=== PATIENT | male | born 1970 | race Asian ===

== ENCOUNTER 2020-11-01 06:33 | Outpatient (REF) | payer OTHER, SELFPAY | END 2020-11-01 06:34 | disposition home or self-care (01) | LOC: HO.LAB 06:33 | PROVIDERS: PCP Internal Medicine; Visit Provider Internal Medicine | DX: Z20.828 Contact with and (suspected) exposure to other viral communicable diseases (principal) | CPT/HCPCS: C9803; U0003 ==

== ENCOUNTER 2020-11-16 06:12 | Outpatient (REF) | payer OTHER, SELFPAY | END 2020-11-16 06:13 | disposition home or self-care (01) | LOC: HO.LAB 06:12 | PROVIDERS: PCP Internal Medicine; Visit Provider Internal Medicine | DX: Z20.822 Contact with and (suspected) exposure to COVID-19 (principal) | CPT/HCPCS: 36415; C9803; U0003 ==

== ENCOUNTER 2020-11-23 06:28 | Outpatient (REF) | payer OTHER, SELFPAY | END 2020-11-23 06:29 | disposition home or self-care (01) | LOC: HO.LAB 06:28 | PROVIDERS: PCP Internal Medicine; Visit Provider Internal Medicine | DX: Z20.822 Contact with and (suspected) exposure to COVID-19 (principal) | CPT/HCPCS: 36415; C9803; U0003 ==

== ENCOUNTER 2020-12-04 06:17 | Outpatient (REF) | payer OTHER, SELFPAY | END 2020-12-04 06:18 | disposition home or self-care (01) | LOC: HO.LAB 06:17 | PROVIDERS: PCP Internal Medicine; Visit Provider Internal Medicine | DX: Z20.822 Contact with and (suspected) exposure to COVID-19 (principal) | CPT/HCPCS: 36415; C9803; U0003; U0005 ==

== ENCOUNTER 2021-05-16 06:31 | Outpatient (REF) | payer OTHER, SELFPAY ==
[2021-05-16 07:09] LABS: MANUAL DIFF FLAG NO
[2021-05-16 07:11] LABS: Basophils Absolute Auto 0.1 X10*3/uL (0.0-0.2); Basophils Percent Auto 0.8 % (0-2); Eosinophils Absolute Auto 0.2 X10*3/uL (0.0-0.4); Eosinophils Percent Auto 2.1 % (0-4); Hematocrit 46.1 % (42-52); Hemoglobin 15.2 g/dl (14.0-18.0); Imm Gran Abs Auto 0.06 X10*3/uL (0.00-0.03); Imm Gran Pct Auto 0.7 % (0.0-0.4); Lymphocytes Absolute Auto 2.5 X10*3/uL (1.2-4.9); Lymphocytes Percent Auto 28.2 % (20-40); Mean Corpuscular Hemoglobin 28.8 pg (27.0-33.0); Mean Corpuscular Volume 87.3 fL (80-98); Mean Platelet Volume 11.4 fL (9.4-12.4); Monocytes Absolute Auto 0.8 X10*3/uL (0.1-1.2); Monocytes Percent Auto 9.3 % (2-11); Neutrophils Absolute Auto 5.3 X10*3/uL (2.0-8.3); Neutrophils Percent Auto 58.9 % (45-73); Platelet Count 255 X10*3/uL (160-400); Red Blood Count 5.28 X10*6/uL (4.60-5.80); Red Cell Distribution Width 13.1 % (11.0-16.0)
[2021-05-16 08:06] LABS: HIV AB/AG Nonreactive (Nonreactive); HIV Num 1 0.15 S/CO (0.00-0.99)
[2021-05-16 08:42] LABS: Alanine Aminotransferase 12 U/L (0-40); Albumin Level 4.7 g/dL (3.5-5.0); Alkaline Phosphatase 123 U/L (39-117); Anion Gap 17 (12-20); Aspartate Amino Transferase 13 U/L (5-37); Bilirubin Total 0.7 mg/dL (0.0-1.0); Blood Urea Nitrogen 9 mg/dL (9-16); Calcium 9.9 mg/dL (8.4-10.2); Carbon Dioxide 23 mmol/L (22-29); Chloride 102 mmol/L (96-108); Estimated Glomerular Filt Rate > 60; Glucose Fasting 420 mg/dL (60-99); Potassium 3.8 mmol/L (3.3-5.1); Sodium 138 mmol/L (135-145); Total Protein 7.5 g/dL (6.5-8.0)
== END 2021-05-16 06:32 | disposition home or self-care (01) ==
LOC: HO.LAB 06:31
PROVIDERS: Visit Provider Internal Medicine
DX: Z11.4 Encounter for screening for human immunodeficiency virus [HIV] (principal); B37.0 Candidal stomatitis; D64.9 Anemia, unspecified
CPT/HCPCS: 36415; 80053; 85025; 87389

== ENCOUNTER → 2022-01-08 13:15 | Outpatient (BNVA) | payer OTHER, SELFPAY | PROVIDERS: PCP Internal Medicine; Referring Provider Internal Medicine; Visit Provider Nurse Practitioner Family ==

== ENCOUNTER 2022-02-22 06:53 | Outpatient (REF) | payer OTHER, SELFPAY ==
[2022-02-22 08:11] LABS: Alanine Aminotransferase 12 U/L (0-40); Albumin Level 4.3 g/dL (3.5-5.0); Alkaline Phosphatase 72 U/L (39-117); Anion Gap 11 (12-20); Aspartate Amino Transferase 15 U/L (5-37); Bilirubin Total 0.3 mg/dL (0.0-1.0); Blood Urea Nitrogen 17 mg/dL (9-16); Calcium 9.7 mg/dL (8.4-10.2); Carbon Dioxide 28 mmol/L (22-29); Chloride 106 mmol/L (96-108); Cholesterol 165 mg/dL; Estimated Glomerular Filt Rate > 60; Glucose Fasting 119 mg/dL (60-99); HDL Cholesterol 46 mg/dL; LDL Cholesterol Calculated 99 mg/dl; Potassium 4.2 mmol/L (3.3-5.1); Sodium 141 mmol/L (135-145); Total Protein 7.1 g/dL (6.5-8.0); Triglycerides 104 mg/dL
[2022-02-22 09:34] LABS: Creatinine Urine 111.44 mg/dL; Microalbum/Creatinine Ratio Ur 5.3 ug/mg cr
[2022-02-27 14:37] LABS: Vitamin D 25-OH, D2 <4 ng/mL; Vitamin D 25-OH, D3 33 ng/mL; Vitamin D 25-OH, Total 33 ng/mL (30-100)
== END 2022-02-22 06:54 | disposition home or self-care (01) ==
LOC: HO.LAB 06:53
PROVIDERS: PCP Internal Medicine; Visit Provider Internal Medicine
DX: E11.65 Type 2 diabetes mellitus with hyperglycemia (principal); E55.9 Vitamin D deficiency, unspecified; E78.5 Hyperlipidemia, unspecified; Z79.4 Long term (current) use of insulin
CPT/HCPCS: 36415; 80053; 80061; 82043; 82306

== ENCOUNTER 2023-03-04 06:58 | Outpatient (REF) | payer OTHER, SELFPAY ==
[2023-03-04 08:01] LABS: Alanine Aminotransferase 14 U/L (0-40); Albumin Level 4.7 g/dL (3.5-5.0); Alkaline Phosphatase 69 U/L (39-117); Anion Gap 13 (12-20); Aspartate Amino Transferase 15 U/L (5-37); Bilirubin Total 0.7 mg/dL (0.0-1.0); Blood Urea Nitrogen 16 mg/dL (9-16); Calcium 9.9 mg/dL (8.4-10.2); Carbon Dioxide 24 mmol/L (22-29); Chloride 106 mmol/L (96-108); Cholesterol 169 mg/dL; Estimated Glomerular Filt Rate > 60; Glucose Fasting 165 mg/dL (60-99); HDL Cholesterol 39 mg/dL; LDL Cholesterol Calculated 116 mg/dl; Potassium 4.4 mmol/L (3.3-5.1); Sodium 139 mmol/L (135-145); Total Protein 7.3 g/dL (6.5-8.0); Triglycerides 71 mg/dL
== END 2023-03-04 06:59 | disposition home or self-care (01) ==
LOC: HO.LAB 06:58
PROVIDERS: PCP Internal Medicine; Visit Provider Internal Medicine
DX: E11.65 Type 2 diabetes mellitus with hyperglycemia (principal); Z79.4 Long term (current) use of insulin
CPT/HCPCS: 36415; 80053; 80061

== ENCOUNTER 2023-03-14 07:49 | Day surgery (SDC) | payer OTHER, SELFPAY ==
[2023-03-12 14:49] VITALS: BMI 20.5
--- NOTE | 2023-03-13 12:18 | HO.ANESPROP2 ---
Documented by User: Romina Mon NP 03/13/23 12:19 HPI - Anesthesia Eval Consult details Narrative: 52yo M for Colonoscopy PMFSH Active Problems Active Problems: All Active Problems (Updated 03/06/23 @ 17:39 by Megan Lea MD) Hyperlipidemia LDL goal <70 (Acute) Physical exam (Acute) Smoker (Acute) Allergic rhinitis (Acute) Eczema (Acute) Diabetes mellitus (Acute) Oral thrush (Acute) Past Medical History Medical History Allergic rhinitis Diabetes mellitus Eczema Physical exam Smoker Family History Family History Father Cancer Mother No problems noted. Surgical History Surgical History History of anal fissures History of endoscopy Social History Social History Housing: [facility] Alcohol intake: current Alcohol intake frequency: holidays/special occasions only Alcohol type: wine Patient Tobacco Use Status: Current everyday Tobacco user Tobacco use type: Cigarette Cigarettes Per Day: 8 e-Cigarette/Vaping Use: Never Used Second Hand Smoke Exposure: No Are you DNR?: No Advance Directives: No Advance Directives Information Provided: Yes service: No Current occupational status: employed Current occupational exposures/hazards: No Cognitive needs: No Hearing needs: No Vision needs: No Meds Allergies Allergy/AdvReac Type Severity Reaction Status Date / Time No Known Allergies Allergy Verified 03/06/23 17:34 Home Medications Medication Instructions Recorded Confirmed Last Taken Type blood-glucose meter (FreeStyle #1 ea 09/06/21 03/06/23 Unknown History Lite Meter kit) Exam Exam Date and Time: March 13, 2023 1218 Height,Weight and Vital Signs: Height 5 ft 5 in Weight 55.792 kg Pertinent Lab Results Pertinent Lab Results: Laboratory Tests 03/04/23 07:05 Sodium 139 Potassium 4.4 Chloride 106 Carbon Dioxide 24 BUN 16 Creatinine 0.95 Assessment and Plan Assessment Anesthesia Assessment: Chart Reviewed Documented by User: Sanjana Monsalve MD 03/14/23 09:05 [facility] Past Medical History Medical History Allergic rhinitis Diabetes mellitus Eczema Physical exam Smoker Family History Family History Father Cancer Mother No problems noted. Family history of problems with anesthesia: No Surgical History Surgical History History of anal fissures History of endoscopy History of Problems with Anesthesia: No Social History Social History Housing: Condominium Alcohol intake: current Alcohol intake frequency: holidays/special occasions only Alcohol type: wine Patient Tobacco Use Status: Current everyday Tobacco user Tobacco use type: Cigarette Cigarettes Per Day: 8 e-Cigarette/Vaping Use: Never Used Second Hand Smoke Exposure: No Are you DNR?: No Advance Directives: No Advance Directives Information Provided: Yes service: No Current occupational status: employed Current occupational exposures/hazards: No Cognitive needs: No Hearing needs: No Vision needs: No Meds Allergies Allergy/AdvReac Type Severity Reaction Status Date / Time No Known Allergies Allergy Verified 03/06/23 17:34 Home Medications Medication Instructions Recorded Confirmed Last Taken Type blood-glucose meter (FreeStyle #1 ea 09/06/21 03/06/23 Unknown History Lite Meter kit) Exam Airway Mallampati Class: II TM Dist: >3cm Neck ROM: Full Heart: rrr Lungs: cta Assessment and Plan Assessment Anesthesia Assessment: Anesthesia Plan Discussed Final Anesthetic Review Family History of Problems with Anesthesia: No History of Problems with Anesthesia: No NPO: Yes ASA Class: II Final Preanesthetic Review: No Changes in Pt Med Stat, Meds/Allgs Chart Reviewed and Consent Obtained/Reviewed Patient Risk: Intermediate Procedure Risk: Intermediate Anesthetic Plan Anesthetic Plan: MAC: Disposition: Standard PACU
[2023-03-14 08:20] VITALS: BP 120/81; PULSE 100; RESP 16; TEMP 37.1; O2SAT 97; BMI 21.5
--- NOTE | 2023-03-14 08:33 | MHC.SHP ---
Pre-Procedural Eval Section A Date of Service: 03/14/23 The patient is an INPATIENT: No The History & Physical has been completed within 30 days and I have reviewed it.: No Section B Chief Complaint: Screening Relevant Family History (Specify if Yes): No Relevant Social History: Tobacco Use Present Medications: see Short Stay Collaborative assessment Medical History: Significant History (Allergic rhinitis Diabetes mellitus Eczema Smoker) History of Previous Operations: Relevant previous surgery/procedure and date(s) (History of anal fissures History of endoscopy) Allergies: Allergies Allergy/AdvReac Type Severity Reaction Status Date / Time No Known Allergies Allergy Verified 03/06/23 17:34 Review of Systems Sugical H&P ROS: Negative: Constitution, Cardiovascular, Respiratory and Gastrointestinal Exam Surgical H&P Exam: Normal: Heart, Normal: Lungs, Normal: Extremities and Normal: Abdomen Plan Diagnosis/Plan: Unchanged I have reviewed the history and physical and performed a pertinent physical examination on my patient. No changes have occurred unless specified. Time Spent With Patient Time: Total time managing care of this patient today ____ minutes.
[2023-03-14] MEDS: Lactated Ringers 1,000 ML 100 ML IVCONT (08:53)
--- NOTE | 2023-03-14 09:19 | P.OP_ITS ---
Operative Note Operative Note Date of Service: 03/14/23 Narrative: COLONOSCOPY TILL CECUM WITH SNARE POLYPECTOMY, SUBMUCOSAL INJECTION AND HEMOCLIP PLACEMENT Pre-op diagnosis: Colon cancer screening (1st Colonoscopy) Post-op diagnosis:? Colon polyp, diverticulosis, hemorrhoids Endoscopist:? Daniel Fournier MD Anesthesia:?MAC Consent: Indications for the procedure and potential complications of bleeding, perforation, reaction to medications and missed diagnosis were discussed with the patient and informed consent was obtained. Instrument: Olympus PCF H 190 L variable stiffness pediatric colonoscope Monitoring: Vital signs and clinical assessment, intermittent blood pressure monitoring, continuous EKG monitoring, Pulse oximetry and Carbon Dioxide monitoring were done throughout the procedure. Please see anesthesia flowsheet. Colon withdrawl time was 17 minutes. Procedure: The patient was placed in the left lateral decubitis position and pre-procedure medications were administered. After a digital rectal examination of the ano-rectum, the video colonoscope was inserted into the rectum and advanced through the colon to the cecum. The colonoscope was slowly withdrawn in a retrograde panoramic fashion and the colon mucosa was carefully examined including a retroflexed view of the rectum. Findings and interventions are described below. Procedure Difficulty: Without difficulty Findings: Terminal Ileum: Not evaluated Cecum: A 15 mm flat polyp adjacent to the appendicular orifice. Polyp was raised with 3 cc of [place] and removed with a hot snare. Polypectomy site was closed with 1 hemoclip Ascending Colon: Normal Transverse Colon: Normal Descending Colon: Moderate diverticulosis Sigmoid Colon: Moderate diverticulosis Rectum: Normal Ano-rectum: Moderate internal hemorrhoids and hypertrophied anal papillae Colon preparation: Good Impression and Post Procedure Diagnosis: Colonoscopy Findings: One medium-sized polyp removed Moderate diverticulosis seen in the left colon Moderate hemorrhoids on retroflexed exam. Plan: Await pathology results Patient has an appointment on 03/25/23 in the GI Clinic with Barb Guzman FNP- [facility]. Repeat Colonoscopy interval based on path results - in 3 years if polyp is adenomatous and 10 years if polyps are hyperplastic. Above findings were reviewed with the patient and colon polyps and diverticulosis handouts were given in the discharge area
[2023-03-14 10:01] VITALS: BP 84/52; PULSE 80; RESP 16; TEMP 36.2; O2SAT 96
[2023-03-14 10:11] LABS: Glucose, Whole Blood 141 mg/dL (60-115)
[2023-03-14 10:16] VITALS: BP 113/75; PULSE 82; RESP 18; TEMP 37.2; O2SAT 98
== END 2023-03-14 10:50 | disposition home or self-care (01) ==
PROVIDERS: PCP Internal Medicine; Visit Provider Internal Medicine Gastroenterology
PROC: 0DJD8ZZ Inspection of Lower Intestinal Tract, Via Natural or Artificial Opening Endoscopic (ICD-10-PCS; CPT 45378; principal; 2023-03-14 09:20)
DX: Z12.11 Encounter for screening for malignant neoplasm of colon (principal); D12.0 Benign neoplasm of cecum; K57.30 Diverticulosis of large intestine without perforation or abscess without bleeding; K64.8 Other hemorrhoids; E11.9 Type 2 diabetes mellitus without complications
CPT/HCPCS: 45385; 45381; 82947; 88305

== ENCOUNTER → 2023-03-25 14:09 | Outpatient (BNVA) | payer OTHER, SELFPAY | PROVIDERS: PCP Internal Medicine; Visit Provider Nurse Practitioner Family ==

== ENCOUNTER 2023-07-15 06:53 | Outpatient (REF) | payer OTHER, SELFPAY ==
[2023-07-15 07:48] LABS: Alanine Aminotransferase 25 U/L (0-40); Albumin Level 4.3 g/dL (3.5-5.0); Alkaline Phosphatase 65 U/L (39-117); Anion Gap 11 (12-20); Aspartate Amino Transferase 20 U/L (5-37); Bilirubin Total 0.3 mg/dL (0.0-1.0); Blood Urea Nitrogen 17 mg/dL (9-16); Calcium 9.1 mg/dL (8.4-10.2); Carbon Dioxide 25 mmol/L (22-29); Chloride 109 mmol/L (96-108); Cholesterol 130 mg/dL (<200); Estimated Glomerular Filt Rate > 60; Glucose Fasting 153 mg/dL (60-99); HDL Cholesterol 48 mg/dL (>40); LDL Cholesterol Calculated 68 mg/dL (<100); Sodium 141 mmol/L (135-145); Total Protein 7.1 g/dL (6.5-8.0); Triglycerides 70 mg/dL (<150)
[2023-07-15 08:24] LABS: Microalbum/Creatinine Ratio Ur 8.8 ug/mg cr (<30)
== END 2023-07-15 06:54 | disposition home or self-care (01) ==
LOC: HO.LAB 06:53
PROVIDERS: PCP Internal Medicine; Visit Provider Internal Medicine
DX: E11.65 Type 2 diabetes mellitus with hyperglycemia (principal); E78.5 Hyperlipidemia, unspecified; Z79.4 Long term (current) use of insulin
CPT/HCPCS: 36415; 80053; 80061; 82043; 82570

== ENCOUNTER 2023-08-04 17:06 | Outpatient (AMB) | payer OTHER, SELFPAY ==
[2023-08-04 17:10] VITALS: BP 108/70; BMI 22.0
--- NOTE | 2023-08-04 17:10 | MHC.PC.OV ---
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 Accompanied by: Self / Same As Patient Allergies No Known Allergies Allergy (Verified 08/04/23 17:17) Medication List - Last Reconciled 08/04/23 by Megan Lea MD betamethasone dipropionate 0.05% 1 appl topical DAILY PRN 15 days blood sugar diagnostic (FreeStyle Lite Strips) Use 1 test strip once a day blood-glucose meter (FreeStyle Lite Meter kit) As directed lancets (FreeStyle Lancets) As directed metformin 500 mg PO BID 90 days pen needle, diabetic (Comfort EZ Pen [place]) Use 1 pen needle once a day rosuvastatin 5 mg PO DAILY 90 days Tobacco use date assessed: 03/06/23 Dental Screening Dental Screen Date: 08/04/23 Did you have a dental visit in the last 12 months?: No Did you have a dental problem in the last 6 months where you did not have access to dental care?: No Was dental information given to patient?: Patient has dentist HPI HPI Comments History of Present Illness Details This is a 52-year-old male with diabetes mellitus type 2 and hyperlipidemia that comes today for follow-up on conditions. A1c within goal. LDL within goal. Had a colonoscopy March 2023 showing 15 mm tubular adenoma and next colonoscopy will be in 3 years. Denies any chest pain or shortness of breath. No change in bowel or bladder habits. No fever or cough. [facility] Medical History Tubular adenoma Physical exam Smoker Allergic rhinitis Eczema Diabetes mellitus Surgical History Hx of colonoscopy History of endoscopy History of anal fissures Family History Father Cancer Mother No problems noted. Social History Housing: Condominium Alcohol intake: current Alcohol intake frequency: holidays/special occasions only Alcohol type: wine Patient Tobacco Use Status: Current everyday Tobacco user Tobacco use type: Cigarette Cigarettes Per Day: 8 e-Cigarette/Vaping Use: Never Used Second Hand Smoke Exposure: No service: No Current occupational status: employed Current occupational exposures/hazards: No Cognitive needs: No Hearing needs: No Vision needs: No Questionnaire Thrive Questionnaire Date Thrive assessed: 03/06/23 LISBETH-7 AMB Questionnaire LISBETH-7 Date LISBETH - 7 assessed: 03/06/23 Source: Developed by Drs. Joshua Pruitt, Rachel Frank, Dwayne Ybarra and colleagues, with an educational julien from [employer]. Review of Systems Const All systems reviewed & are unremarkable except as noted in HPI and below Eyes Reports no additional complaints, Denies change in vision and Denies other visual disturbances Card Denies chest pain at rest, Denies chest pain with activity, Denies edema, Denies irregular heart rhythm, Denies claudication, Denies dyspnea, Denies dyspnea on exertion, Denies orthopnea, Denies paroxysmal nocturnal dyspnea and Denies slow heart rate Resp Denies cough, Denies dyspnea and Denies dyspnea on exertion GI Denies abdominal pain, Denies change in bowel habits, Denies excessive flatus, Denies nausea and Denies vomiting Denies urinary hesitancy, Denies urinary incontinence and Denies urinary urgency Musc Denies abnormal gait, Denies atrophy, Denies deformity and Denies limited range of motion Skin/Breast Denies bleeding lesions, Denies changing lesions and Denies rash Neuro Denies abnormal gait and Denies lack of coordination Physical exam (Primary Care) Vital Signs: Last Vital Signs BP 108/70 08/04/23 17:10 BMI result Body Mass Index 22.0 Tobacco/Smoking Status: Tobacco use Status Tobacco use date assessed 03/06/23 08/04/23 17:13 Patient Tobacco Use Status Current everyday Tobacco 08/04/23 17:13 Tobacco use type Cigarette 08/04/23 17:13 e-Cigarette/Vaping Use Never Used 08/04/23 17:13 Thrive Assessment: Date of Thrive Assessment Date Thrive assessed 03/06/23 08/04/23 17:13 Eyes General: appearance normal, both eyes and all related structures Eyelids: Yes eyelids normal Conjunctivae: conjunctivae normal Neck Neck: Yes normal visual inspection and Yes supple Resp Effort & Inspection: normal respiratory effort Auscultation: clear to auscultation bilaterally Cardio Jugular venous distension: no JVD Rate: regular rate Rhythm: regular rhythm Heart sounds: S1 normal heart sound present and S2 normal heart sound present Extrem General: Yes full ROM Results AMB Hemoglobin A1c AMB Hemoglobin A1c 6.2 % Last Edit by IVON Rodriguez on 08/04/23 17:16 Results Reviewed Results Reviewed: Laboratory Last Values Hgb A1c (Clinic) 6.2 % (4.0-6.0) H 08/04/23 17:07 Assessment and Plan Assessment & Plan (1) Diabetes mellitus: Code(s): E11.9 - Type 2 diabetes mellitus without complications Qualifiers: Diabetes mellitus complication status: with hyperglycemia Diabetes mellitus correction insulin use: with buttermaker continuous churn use Diabetes mellitus type: type 2 Qualified Code(s): E11.65 - Type 2 diabetes mellitus with hyperglycemia; Z79.4 - senior care (current) use of insulin Plan: Continue metformin. A1c goal is equal or less than 7%. (2) Hyperlipidemia LDL goal <70: Code(s): E78.5 - Hyperlipidemia, unspecified Plan: Continue statins. LDL goal is less than 70. (3) Tubular adenoma: Code(s): D36.9 - Benign neoplasm, unspecified site Plan: Repeat colonoscopy in 3 years. Orders: Orders Lipid Panel 6 Months E78.5 - Hyperlipidemia, unspecified AMB Hemoglobin A1c Today E11.9 - Type 2 diabetes mellitus without complications Microalbumin, Random (w Creat) 6 Months E11.9 - Type 2 diabetes mellitus without complications Comprehensive [place]. Panel Fast 6 Months E11.65 - Type 2 diabetes mellitus with hyperglycemia, Z79.4 - senior care (current) use of insulin Coding Level of Care Code Est Pt Level 3 (03534) Diagnoses Type 2 diabetes mellitus with hyperglycemia, with long-term current use of insulin E11.65; Z79.4 Diabetes mellitus complication status: with hyperglycemia Diabetes mellitus buttermaker continuous churn insulin use: with buttermaker continuous churn use Diabetes mellitus type: type 2 Hyperlipidemia LDL goal <70 E78.5 Tubular adenoma D36.9 Time Spent (min) 18
== END 2023-08-04 17:24 | disposition home or self-care (01) ==
LOC: HO.HMGH 17:06
PROVIDERS: PCP Internal Medicine; Visit Provider Internal Medicine
DX: E11.65 Type 2 diabetes mellitus with hyperglycemia (principal); Z79.4 Long term (current) use of insulin; E78.5 Hyperlipidemia, unspecified; D36.9 Benign neoplasm, unspecified site; E11.9 Type 2 diabetes mellitus without complications
CPT/HCPCS: 83036; 99213

== ENCOUNTER 2024-01-19 06:47 | Outpatient (REF) | payer OTHER, SELFPAY ==
[2024-01-19 08:04] LABS: Alanine Aminotransferase 18 U/L (0-40); Albumin Level 4.5 g/dL (3.5-5.0); Alkaline Phosphatase 77 U/L (39-117); Anion Gap 13 (12-20); Aspartate Amino Transferase 17 U/L (5-37); Bilirubin Total 0.3 mg/dL (0.0-1.0); Blood Urea Nitrogen 15 mg/dL (9-16); Calcium 9.4 mg/dL (8.4-10.2); Carbon Dioxide 24 mmol/L (22-29); Chloride 107 mmol/L (96-108); Cholesterol 129 mg/dL (<200); Estimated Glomerular Filt Rate > 60; Glucose Fasting 156 mg/dL (60-99); HDL Cholesterol 48 mg/dL (>40); LDL Cholesterol Calculated 71 mg/dL (<100); Potassium 3.9 mmol/L (3.3-5.1); Sodium 140 mmol/L (135-145); Total Protein 7.3 g/dL (6.5-8.0); Triglycerides 51 mg/dL (<150)
[2024-01-19 08:32] LABS: Creatinine Urine 144.19 mg/dL; Microalbum/Creatinine Ratio Ur 12.4 ug/mg cr (<30)
== END 2024-01-19 06:48 | disposition home or self-care (01) ==
LOC: HO.LAB 06:47
PROVIDERS: PCP Internal Medicine; Visit Provider Internal Medicine
DX: E11.65 Type 2 diabetes mellitus with hyperglycemia (principal); E78.5 Hyperlipidemia, unspecified; Z79.4 Long term (current) use of insulin
CPT/HCPCS: 36415; 80053; 80061; 82043; 82570

== ENCOUNTER 2024-01-20 16:36 | Outpatient (AMB) | payer OTHER, SELFPAY ==
--- NOTE | 2024-01-20 16:40 | MHC.PC.OV ---
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 Accompanied by: Self / Same As Patient Allergies No Known Allergies Allergy (Verified 01/20/24 17:05) Medication List - Last Reconciled 01/20/24 by Megan Lea MD betamethasone dipropionate 0.05% 1 appl topical DAILY PRN 15 days blood sugar diagnostic (FreeStyle Lite Strips) Use 1 test strip once a day blood-glucose meter (FreeStyle Lite Meter kit) As directed lancets (FreeStyle Lancets) As directed metformin 500 mg PO BID 90 days pen needle, diabetic (Comfort EZ Pen [place]) Use 1 pen needle once a day rosuvastatin 5 mg PO DAILY 90 days Tobacco use date assessed: 01/20/24 Dental Screening Dental Screen Date: 01/20/24 Did you have a dental visit in the last 12 months?: Yes Did you have a dental problem in the last 6 months where you did not have access to dental care?: No Was dental information given to patient?: Patient has dentist HPI HPI Comments History of Present Illness Details This is a 53-year-old male with diabetes mellitus type 2 that comes for his physical exam. A1c within goal. Last diabetic eye exam was 2022. Last colonoscopy was 2022 showing tubular adenoma. No chest pain or shortness of breath. [facility] Medical History Tubular adenoma Physical exam Smoker Allergic rhinitis Eczema Diabetes mellitus Surgical History Hx of colonoscopy History of endoscopy History of anal fissures Family History Father Cancer Mother No problems noted. Social History Housing: Condominium Alcohol intake: current Alcohol intake frequency: holidays/special occasions only Alcohol type: wine Patient Tobacco Use Status: Current everyday Tobacco user Tobacco use type: Cigarette Cigarettes Per Day: 8 e-Cigarette/Vaping Use: Never Used Second Hand Smoke Exposure: No service: No Current occupational status: employed Current occupational exposures/hazards: No Cognitive needs: No Hearing needs: No Vision needs: No Questionnaire PHQ-9 Over the last 2 weeks, how often have you been bothered by any of the following problems? 1. Little interest or pleasure in doing things: not at all 2. Feeling down, depressed, or hopeless: not at all 3. Trouble falling or staying asleep, or sleeping too much: not at all 4. Feeling tired or having little energy: not at all 5. Poor appetite or overeating: not at all 6. Feeling bad about yourself - or that you are a failure or have let yourself or your family down: not at all 7. Trouble concentrating on things, such as reading the newspaper or watching television: not at all 8. Moving or speaking so slowly that other people could have noticed. Or the opposite - being so fidgety or restless that you have been moving around a lot more than usual: not at all 9. Thoughts that you would be better off or of hurting yourself in some way: not at all Total score: 0 Depression Screening Interpretation: Negative Depression Screening Done: Yes 61624 - PHQ-9 Billing: Yes Source: Developed by Drs. Joshua Pruitt, Rachel Frank, Dwayne Ybarra and colleagues, with an educational julien from [employer]. Thrive Questionnaire Date Thrive assessed: 01/20/24 I am a: Patient What is your living situation today?: I have a steady place to live Within the past 12 months, did the food you bought not last and you didn't have the money to get more?: Never true Within the past 12 months, did you worry whether your food would run out before you got money to buy more?: Never true Do you have trouble paying for medicines?: No Do you have trouble getting transportation to medical appointments?: No Do you have trouble paying your heating and electricity bill?: No Do you have trouble taking care of your child, family member or friend?: No Do you have trouble with day-to-day activities such as bathing, preparing meals, shopping, managing finances, etc.?: No Are you currently unemployed and looking for a job?: No Are you interested in more education?: No Please select the resources that you would like help with: None Currently or been in a relationship where the following occur: no concerns reported THRIVE Score: 0 AUDIT C Alcohol Use Questionnaire (AUDIT-C) 1. How often do you have a drink containing alcohol?: Monthly or less 2. How many drinks containing alcohol do you have on a typical day when you are drinking?: 1 or 2 3. How often do you have six or more drinks on one occasion?: Never Total Score: 1 LISBETH-7 AMB Questionnaire LISBETH-7 Date LISBETH - 7 assessed: 01/20/24 Feeling nervous, anxious, or on edge: 0 = Not at all Not being able to stop or control worryin = Not at all Worrying too much about different things: 0 = Not at all Trouble relaxin = Not at all Being so restless that it is hard to sit still: 0 = Not at all Becoming easily annoyed or irritable: 0 = Not at all Feeling afraid as if something awful might happen: 0 = Not at all Total LISBETH-7 score (0-4 normal; 5-9 mild; 10-14 moderate; 15-21 severe): 0 Source: Developed by Drs. Joshua Pruitt, Rachel Frank, Dwayne Ybarra and colleagues, with an educational julien from [employer]. LISBETH-7 Assessment Billing LISBETH-7 Assessment Tool: LISBETH-7 Assessment 33900 Review of Systems Const All systems reviewed & are unremarkable except as noted in HPI and below Eyes Reports no additional complaints, Denies change in vision and Denies other visual disturbances Card Denies chest pain at rest, Denies chest pain with activity, Denies edema, Denies irregular heart rhythm, Denies claudication, Denies dyspnea, Denies dyspnea on exertion, Denies orthopnea, Denies paroxysmal nocturnal dyspnea and Denies slow heart rate Resp Denies cough, Denies dyspnea and Denies dyspnea on exertion GI Denies abdominal pain, Denies change in bowel habits, Denies excessive flatus, Denies nausea and Denies vomiting Denies urinary hesitancy, Denies urinary incontinence and Denies urinary urgency Musc Denies atrophy, Denies deformity and Denies limited range of motion Physical exam (Primary Care) Vital Signs: Last Vital Signs BP 110/76 01/20/24 16:44 BMI result Body Mass Index 22.6 Tobacco/Smoking Status: Tobacco use Status Tobacco use date assessed 01/20/24 01/20/24 16:46 Patient Tobacco Use Status Current everyday Tobacco 01/20/24 16:41 Tobacco use type Cigarette 01/20/24 16:41 e-Cigarette/Vaping Use Never Used 01/20/24 16:41 PHQ-9: PHQ-9 Score PHQ-9: Total score 0 01/20/24 17:10 Depression Screening Interpretation: Negative Thrive Assessment: Date of Thrive Assessment Date Thrive assessed 01/20/24 01/20/24 16:47 Currently or been in a relationship where the following occur: no concerns reported Const Orientation/consciousness: patient oriented x3 HENMT Head: Yes normal to inspection, Yes normocephalic and Yes atraumatic Ears: external ears normal Eyes General: appearance normal, both eyes and all related structures Eyelids: Yes eyelids normal Conjunctivae: conjunctivae normal Neck Neck: Yes normal visual inspection and Yes supple Resp Effort & Inspection: normal respiratory effort Auscultation: clear to auscultation bilaterally Cardio Jugular venous distension: no JVD Rate: regular rate Rhythm: regular rhythm Heart sounds: S1 normal heart sound present and S2 normal heart sound present GI Inspection: Yes normal to inspection Palpation (GI): Soft to palpation and nontender Auscultation: normal bowel sounds Skin General skin exam: no rashes or lesions noted Neuro General: patient oriented x3 and no focal motor deficits Extrem General: Yes full ROM Psych Appearance: grossly normal Results AMB Hemoglobin A1c AMB Hemoglobin A1c 6.5 % Last Edit by IVON Rodriguez on 01/20/24 16:55 Results Reviewed Results Reviewed: Laboratory Last Values Hgb A1c (Clinic) 6.5 % (4.0-6.0) H 01/20/24 16:39 Assessment and Plan Assessment & Plan (1) Physical exam: Code(s): Z00.00 - Encounter for general adult medical examination without abnormal findings Plan: Repeat in a year. 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 A1c goal is equal or less than 7%. Orders: Orders AMB Hemoglobin A1c Today E11.9 - Type 2 diabetes mellitus without complications Lipid Panel 6 Months E78.5 - Hyperlipidemia, unspecified Microalbumin, Random (w Creat) 6 Months E11.9 - Type 2 diabetes mellitus without complications Comprehensive [place]. Panel Fast 6 Months E11.9 - Type 2 diabetes mellitus without complications Medications: Refilled blood sugar diagnostic (FreeStyle Lite Strips) Use 1 test strip once a day 100 ea 3RF E11.65 - Type 2 diabetes mellitus with hyperglycemia, Z79.4 - remote computer terminal operator (current) use of insulin Coding Level of Care Code Est Pt Prev Care 40-64y(27470) Diagnoses Physical exam Z00.00 Type 2 diabetes mellitus with hyperglycemia, with long-term current use of insulin E11.65; Z79.4 Diabetes mellitus type: type 2 Diabetes mellitus long term care administrator insulin use: with long term care administrator use Diabetes mellitus complication status: with hyperglycemia Additional Codes LISBETH-7 Assessment Billing - LISBETH-7 Assessment Tool: LISBETH-7 Assessment 19568 ([id number]) Time Spent (min) 30
[2024-01-20 16:44] VITALS: BP 110/76; BMI 22.6
== END 2024-01-20 17:21 | disposition home or self-care (01) ==
PROVIDERS: PCP Internal Medicine; Visit Provider Internal Medicine
DX: Z00.00 Encounter for general adult medical examination without abnormal findings (principal); E11.65 Type 2 diabetes mellitus with hyperglycemia; Z79.4 Long term (current) use of insulin; E11.9 Type 2 diabetes mellitus without complications
CPT/HCPCS: 83036; 99396

== ENCOUNTER 2025-01-24 06:53 | Outpatient (REF) | payer BC, SELFPAY ==
[2025-01-24 07:55] LABS: Alanine Aminotransferase 32 U/L (0-40); Albumin Level 4.4 g/dL (3.5-5.0); Alkaline Phosphatase 82 U/L (39-117); Anion Gap 12 (12-20); Aspartate Amino Transferase 27 U/L (5-37); Bilirubin Total 0.3 mg/dL (0.0-1.0); Blood Urea Nitrogen 17 mg/dL (9-16); Calcium 9.2 mg/dL (8.4-10.2); Carbon Dioxide 22 mmol/L (22-29); Chloride 108 mmol/L (96-108); Cholesterol 139 mg/dL (<200); Estimated Glomerular Filt Rate > 60; Glucose Fasting 184 mg/dL (60-99); HDL Cholesterol 52 mg/dL (>40); LDL Cholesterol Calculated 70 mg/dL (<100); Potassium 4.1 mmol/L (3.3-5.1); Sodium 138 mmol/L (135-145); Total Protein 7.8 g/dL (6.5-8.0); Triglycerides 85 mg/dL (<150)
[2025-01-24 08:29] LABS: Microalbum/Creatinine Ratio Ur 13.5 ug/mg cr (<30)
== END 2025-01-24 06:54 | disposition home or self-care (01) ==
LOC: HO.LAB 06:53
PROVIDERS: PCP Internal Medicine; Visit Provider Internal Medicine
DX: E11.9 Type 2 diabetes mellitus without complications (principal); E78.5 Hyperlipidemia, unspecified
CPT/HCPCS: 36415; 80053; 80061; 82043; 82570

== ENCOUNTER 2025-01-25 17:15 | Outpatient (AMB) | payer BC, SELFPAY ==
--- NOTE | 2025-01-25 17:19 | A.OFFPC_ITS ---
Vital Signs 01/25/25 17:21 Height 5 ft 5 in Weight 136 lb BMI 22.6 BP 106/70 Blood Pressure Location Lt brachial Position Sitting Intake Visit Reasons: Annual exam Intake Note: Patient here for an annual physical exam Parking Lot Attendant Required: No Accompanied by: Self / Same As Patient Allergies No Known Allergies Allergy (Verified 01/25/25 17:33) Medication List - Last Reconciled 01/25/25 by Megan Lea MD betamethasone dipropionate 0.05% 1 appl topical DAILY PRN 15 days blood sugar diagnostic (FreeStyle Lite Strips) Use 1 test strip once a day blood-glucose meter (FreeStyle Lite Meter kit) As directed lancets (FreeStyle Lancets) As directed metformin 500 mg PO BID 90 days pen needle, diabetic (Comfort EZ Pen [place]) Use 1 pen needle once a day rosuvastatin 5 mg PO DAILY 90 days Tobacco use date assessed: 01/25/25 Dental Screening Dental Screen Date: 01/25/25 Did you have a dental visit in the last 12 months?: No Did you have a dental problem in the last 6 months where you did not have access to dental care?: No Was dental information given to patient?: Patient has dentist HPI HPI Comments History of Present Illness Details The patient is a 54-year-old male presenting for an annual physical examination. His Tdap vaccine is overdue, with over ten years passed since the last dose. Glycemic control issues are apparent, with his Hemoglobin A1c level at 7%, attributed to poor dietary habits such as increased snacking and carbohydrate intake, leading to elevated fasting glucose levels. The patient reports persistent nasal congestion and partial ear blockage following a brief cold approximately three weeks prior. Symptoms consistent with seasonal allergic rhinitis are suspected, often aligning with seasonal transitions. Tobacco use is significant, with a history of smoking 8-10 cigarettes daily, though he plans to quit by summer. Alcohol consumption is minimal, mainly on holidays. He completed a diabetic eye examination in May of last year and demonstrates no symptoms of depression or anxiety based on a negative PHQ-9 result. A family history of mortality from a C. diff infection leading to septic shock was noted. - Tdap vaccine is recommended as it is o verdue (more than 10 years since last administration). - Blood pressure well controlled. - Hemoglobin A1c is 7%; fasting glucose is 184 mg/dL; repeat assessment in four months to monitor glycemic control. - LDL cholesterol is at goal (70 mg/dL). - Tobacco cessation counseling provided; intends to quit smoking by summer. - Annual diabetic eye exam was last cond ucted in May 2022, reassessment recommended. - PHQ-9 screening helped to assess for d epression, results were negative. [facility] Medical History Tubular adenoma Physical exam Smoker Allergic rhinitis Eczema Diabetes mellitus Surgical History Hx of colonoscopy History of endoscopy History of anal fissures Family History Father Cancer Mother No problems noted. Social History Housing: [facility] Alcohol intake: current Alcohol intake frequency: holidays/special occasions only Alcohol type: wine Patient Tobacco Use Status: Current everyday Tobacco user Tobacco use type: Cigarette Cigarettes Per Day: 13 e-Cigarette/Vaping Use: Never Used Second Hand Smoke Exposure: No service: No Current occupational status: employed Current occupational exposures/hazards: No Cognitive needs: No Hearing needs: No Vision needs: No Questionnaire PHQ-9 Over the last 2 weeks, how often have you been bothered by any of the following problems? 1. Little interest or pleasure in doing things: not at all 2. Feeling down, depressed, or hopeless: not at all 3. Trouble falling or staying asleep, or sleeping too much: not at all 4. Feeling tired or having little energy: not at all 5. Poor appetite or overeating: not at all 6. Feeling bad about yourself - or that you are a failure or have let yourself or your family down: not at all 7. Trouble concentrating on things, such as reading the newspaper or watching television: not at all 8. Moving or speaking so slowly that other people could have noticed. Or the opposite - being so fidgety or restless that you have been moving around a lot more than usual: not at all 9. Thoughts that you would be better off or of hurting yourself in some way: not at all Total score: 0 Depression Screening Interpretation: Negative Depression Screening Done: Yes 91762 - PHQ-9 Billing: Yes Source: Developed by Drs. Joshua Pruitt, Rachel Frank, Dwayne Ybarra and colleagues, with an educational julien from [employer]. Thrive Questionnaire Date Thrive assessed: 01/25/25 I am a: Patient What is your living situation today?: I have a steady place to live Within the past 12 months, did the food you bought not last and you didn't have the money to get more?: Never true Within the past 12 months, did you worry whether your food would run out before you got money to buy more?: Never true Do you have trouble paying for medicines?: No Do you have trouble getting transportation to medical appointments?: No Do you have trouble paying your heating and electricity bill?: No Do you have trouble taking care of your child, family member or friend?: No Do you have trouble with day-to-day activities such as bathing, preparing meals, shopping, managing finances, etc.?: No Are you currently unemployed and looking for a job?: No Are you interested in more education?: No Please select the resources that you would like help with: None Currently or been in a relationship where the following occur: No concerns reported THRIVE Score: 0 AUDIT C Alcohol Use Questionnaire (AUDIT-C) 1. How often do you have a drink containing alcohol?: Monthly or less 2. How many drinks containing alcohol do you have on a typical day when you are drinking?: 1 or 2 3. How often do you have six or more drinks on one occasion?: Never Total Score: 1 Score Reviewed/Action Taken: No LISBETH-7 AMB Questionnaire LISBETH-7 Date LISBETH - 7 assessed: 01/25/25 Feeling nervous, anxious, or on edge: 0 = Not at all Not being able to stop or control worryin = Not at all Worrying too much about different things: 0 = Not at all Trouble relaxin = Not at all Being so restless that it is hard to sit still: 0 = Not at all Becoming easily annoyed or irritable: 0 = Not at all Feeling afraid as if something awful might happen: 0 = Not at all Total LISBETH-7 score (0-4 normal; 5-9 mild; 10-14 moderate; 15-21 severe): 0 Source: Developed by Drs. Joshua Pruitt, Rachel Frank, Dwayne Ybarra and colleagues, with an educational julien from [employer]. LISBETH-7 Assessment Billing LISBETH-7 Assessment Tool: LISBETH-7 Assessment 72186 Review of Systems Const All systems reviewed & are unremarkable except as noted in HPI and below Card Denies chest pain at rest, Denies chest pain with activity, Denies edema, Denies irregular heart rhythm, Denies claudication, Denies dyspnea, Denies dyspnea on exertion, Denies orthopnea, Denies paroxysmal nocturnal dyspnea and Denies slow heart rate Resp Denies cough, Denies dyspnea and Denies dyspnea on exertion GI Denies abdominal pain, Denies change in bowel habits, Denies excessive flatus, Denies nausea and Denies vomiting Denies urinary hesitancy, Denies urinary incontinence and Denies urinary urgency Physical exam (Primary Care) Vital Signs: Last Vital Signs BP 106/70 01/25/25 17:21 BMI result Body Mass Index 22.6 Tobacco/Smoking Status: Tobacco use Status Tobacco use date assessed 01/25/25 01/25/25 17:23 Patient Tobacco Use Status Current everyday Tobacco 01/25/25 17:35 Tobacco use type Cigarette 01/25/25 17:35 e-Cigarette/Vaping Use Never Used 01/25/25 17:35 PHQ-9: PHQ-9 Score PHQ-9: Total score 0 01/25/25 17:48 Depression Screening Interpretation: Negative Thrive Assessment: Date of Thrive Assessment Date Thrive assessed 01/25/25 01/25/25 17:23 Currently or been in a relationship where the following occur: No concerns reported [facility] Head: Yes normal to inspection, Yes normocephalic and Yes atraumatic Ears: external ears normal Eyes General: appearance normal, both eyes and all related structures Eyelids: Yes eyelids normal Conjunctivae: conjunctivae normal Neck Neck: Yes normal visual inspection and Yes supple Resp Effort & Inspection: normal respiratory effort Auscultation: clear to auscultation bilaterally Cardio Jugular venous distension: no JVD Rate: regular rate Rhythm: regular rhythm Heart sounds: S1 normal heart sound present and S2 normal heart sound present GI Inspection: Yes normal to inspection Palpation (GI): Soft to palpation and nontender Auscultation: normal bowel sounds Skin General skin exam: no rashes or lesions noted Neuro General: no focal motor deficits Extrem General: Yes full ROM Psych Appearance: grossly normal Results AMB Hemoglobin A1c AMB Hemoglobin A1c 7.0 % Last Edit by IVON Rodriguez on 01/25/25 17:3 4 Immunizations Boostrix Tdap 2.5 Lf unit-8 mcg-5 Lf/0.5 mL intramuscular syringe Performing Provider: Megan Lea MD [facility] Administered by: IVON Rodriguez on 01/25/25 17:46 Dose Route Admin Location Dispensed Lot Number Expiration Date NDC Gas Charger 0.5 mL IM Left Deltoid 0.5 mL [id number] 04/16/27 [id number] [employer] VIS Given Date VIS Provided VIS Publication Date 01/25/25 Single Vaccine 21 Eligibility Eligibility Date Funding Source Not [facility] Eligible 01/25/25 Private Results Reviewed Results Reviewed: Laboratory Last Values Hgb A1c (Clinic) 7.0 % (4.0-6.0) H 01/25/25 17:24 Coding Level of Care Code Est Pt Prev Care 40-64y(44206) Diagnoses Physical exam Z00.00 Type 2 diabetes mellitus with hyperglycemia, with long-term current use of insulin E11.65; Z79.4 Diabetes mellitus complication status: with hyperglycemia Diabetes mellitus nursing home insulin use: with nursing home use Diabetes mellitus type: type 2 Additional Codes LISBETH-7 Assessment Billing - LISBETH-7 Assessment Tool: LISBETH-7 Assessment 41072 ( [id number]) PHQ-9 - 36061 - PHQ-9 Billing: Yes ([id number]) Time Spent (min) 31 Assessment & Plan Assessment & Plan (1) Physical exam: Code(s): Z00.00 - Encounter for general adult medical examination without abnormal findings Category: Medical (2) Diabetes mellitus: Code(s): E11.9 - Type 2 diabetes mellitus without complications Category: Medical Qualifiers: Diabetes mellitus complication status: with hyperglycemia Diabetes mellitus ocean transportation intermediary insulin use: with nursing home use Diabetes mellitus type: type 2 Qualified Code(s): E11.65 - Type 2 diabetes mellitus with hyperglycemia; Z79.4 - intermediate (current) use of insulin Plan The patient will receive the Tdap vaccine as more than ten years have passed since his last dose. We will reassess his Hemoglobin A1c and fasting glucose levels in four months, monitoring dietary adherence and adjustments. To manage his suspected seasonal allergic rhinitis, I recommended trying [id number] medications like Zyrtec. He plans to quit smoking by summer and may explore resources like [employer]. Additional support, including nicotine patches, was discussed if necessary. Patient was informed and verbally consented to the use of an ambient scribe for clinic note documentation during this visit. During the visit, I explained the need for the Tdap vaccine and emphasized the importance of monitoring his glucose levels due to dietary changes affecting his Hemoglobin A1c. I discussed seasonal allergies likely contributing to his current nasal symptoms, suggesting symptom management with bejf-hfn-dgzfavr medications like Zyrtec. For smoking cessation, I outlined the benefits of quitting smoking and mentioned strategies such as setting a quit date and utilizing cessation aids like patches. I encouraged using resources like [employer]. The importance of maintaining regular follow-ups was stressed, particularly regarding his glycemic control and the annual diabetic eye exam. Orders: Orders AMB Hemoglobin A1c Today E11.65 - Type 2 diabetes mellitus with hyperglycemia, Z79.4 - intermodal dispatcher (current) use of insulin TDaP Immunization Today Z23 - Encounter for immunization Lipid Panel 4 Months E78.5 - Hyperlipidemia, unspecified Microalbumin, Random (w Creat) 4 Months R80.9 - Proteinuria, unspecified Comprehensive Met. Panel 4 Months Z00.00 - Encounter for general adult medical examination without abnormal findings Patient Instructions: - Receive Tdap vaccine today. - Monitor and reduce carbohydrate and snack intake. - Consider using Zyrtec for allergy symptoms. - Aim to quit smoking by summer; explore resources such as [employer]. - Schedule follow-up in four months to reassess glucose levels. - Contact the office if experiencing significant health changes or concerns.
[2025-01-25 17:21] VITALS: BP 106/70; BMI 22.6
== END 2025-01-25 17:52 | disposition home or self-care (01) ==
LOC: HO.HMCH 17:15
PROVIDERS: PCP Internal Medicine; Visit Provider Internal Medicine
DX: Z00.00 Encounter for general adult medical examination without abnormal findings (principal); E11.65 Type 2 diabetes mellitus with hyperglycemia; Z79.4 Long term (current) use of insulin; Z23 Encounter for immunization

== ENCOUNTER → 2025-01-25 17:15 | Outpatient (BNVA) | payer BC, SELFPAY | PROVIDERS: PCP Internal Medicine; Visit Provider Internal Medicine | DX: Z00.00 Encounter for general adult medical examination without abnormal findings (principal); Z23 Encounter for immunization; E11.65 Type 2 diabetes mellitus with hyperglycemia; Z79.4 Long term (current) use of insulin | CPT/HCPCS: 83036; 90471; 90715; 96127 ==

== ENCOUNTER 2025-06-17 07:02 | Outpatient (REF) | payer BC, SELFPAY ==
--- OUTSIDE RECORDS SUMMARY | 2025-06-17 07:05 | XMS_ITS | Patient Health Record ---
Author Organization [facility] Address [address] [place] [address] Care Team Providers Care Television Service Engineer Name Role Phone DR. Jose Carlos Phoenix Primary Care Provider Migration, Provider Unavailable Unavailable Allergies Allergen (clinical drug ingredient) Drug/Non Drug Allergy documented on EMR Reaction Allergy Type Onset Date Status acetaminophen / oxycodone Percocet hallucinations Drug Allergy Active Reason For Referral No Information Medications Medication SIG (Take, Route, Frequency, Duration) Notes Start Date End Date Status Dexilant 60 MG Capsule Delayed Release 1 cap(s) orally qhs; Duration: 30 day(s) Active Betamethasone Valerate 0.1 % Ointment 1 nallely applied topically 2 times a day; Duration: 30 day(s) Active Flonase Allergy Relief 50 MCG/ACT Suspension 1 spray(s) intranasally once a day; Duration: 30 day(s) Active Pantoprazole Sodium 40 MG Tablet Delayed Release 1 tab(s) orally once a day; Duration: 30 day(s) 06/22/2015 Active Immunizations Vaccine Route Administration Date Status Comme nts DT Unknown 05/15/2005 Administered DTaP IM Intramuscular 03/21/2014 Administered Twinrix Unknown 04/15/2005 Administered Twinrix Unknown 05/15/2005 Administered Twinrix Unknown 07/18/2005 Administered Social History Tobacco Use: Social History Observation Description Date Details (start date - stop date) Former Smoker NA - NA Social History General Social Info Question Answer Notes Tobacco use: Patient is a: former smoker Additional Details Category Social Info Options Details 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 Travel [place]ide [place]: no Alcohol: yes a couple every c ouple of weeks. Smoking: yes 3/4 PPD, 15 year s. Sexually active: yes Recreational drug use: no Exercise: no Home smoke detector use: yes Partners one Partner Gender male Condom use no Pets no Domestic partner yes 2001 years. (Yaneli james). Seat Belt Use yes Living Will no Problems Problem Type SNOMED Code ICD Code Onset Dates Problem Status W/U Status Risk Notes Problem Common cold (78739146) URI [Upper respiratory infection] (460) Active confirmed Problem Seasonal allergic rhinitis (289263862) Seasonal allergic rhinitis (477.9) Active confirmed Problem Tobacco use (833266957) Tobacco use disorder (305.1) Active confirmed Problem Hemorrhoids (75870235) Hemorrhoids NOS (455.6) Active confirmed Problem EAR ANOM NEC/IMPAIR HEAR (744.09) Active confirmed Encounters Encounter Location Date Provider Diagnosis [facility] [address] [facility] [address] [place] [address] 04/23/2025 Provider Migration GERD [Gastroesophageal reflux disease] 530.81 ; Seasonal allergic rhinitis 477.9 and SKIN DISORDER NOS 709.9 Assessments Encounter Date Diagnosis (ICD Code) Assessment Notes Treatment Notes Treatment Clinical Notes Section Notes 04/23/2025 GERD [Gastroesophage al reflux disease] (ICD9-CM - 530.81) 04/23/2025 Seasonal allergic rhinitis (ICD9-CM - 477.9) 04/23/2025 SKIN DISORDER NOS (ICD9-CM - 709.9) Plan Of Treatment Pending Test Test Name Order Date CBC, CHEMS, LIPIDS, UA 04/15/2005 COMPREHENSIVE METABOLIC PANEL 05/17/2015 COMPREHENSIVE METABOLIC PANEL 03/21/2014 TSH W/REFLEX TO FT4 03/21/2014 TSH W/REFLEX TO FT4 05/17/2015 CBC (INCLUDES DIFF/PLT) 05/17/2015 CBC (INCLUDES DIFF/PLT) 03/21/2014 LIPID PANEL 03/21/2014 LIPID PANEL 05/17/2015 URINALYSIS REFLEX 03/21/2014 URINALYSIS REFLEX 05/17/2015 Insurance Providers Payer Name Payer Address Payer Phone Subscriber Number Group Number Insured Name Patient Relationship to Insured Coverage Start Date Coverage End Date SANIYA MILLER [address] [place] [address] [id number] JONES Self - patient is the insured Medical (General) History Medical History History ICD Code Piteriiosis Anal fissures Chronic Back Pain, Asymmetric Disc GERD ECZEMA HEMMORHOIDS NORMAL CARDIAC ECHO MARCH 2014 Surgical History Surgery Date(Month/Year) Anal surgeries.
[2025-06-17 08:21] LABS: Alanine Aminotransferase 32 U/L (0-40); Albumin Level 4.8 g/dL (3.5-5.0); Alkaline Phosphatase 83 U/L (39-117); Anion Gap 11 (12-20); Aspartate Amino Transferase 32 U/L (5-37); Blood Urea Nitrogen 18 mg/dL (9-16); Calcium 9.0 mg/dL (8.4-10.2); Carbon Dioxide 21 mmol/L (22-29); Chloride 108 mmol/L (96-108); Cholesterol 135 mg/dL (<200); Estimated Glomerular Filt Rate > 60; HDL Cholesterol 47 mg/dL (>40); Potassium 4.1 mmol/L (3.3-5.1); Sodium 136 mmol/L (135-145); Total Protein 7.6 g/dL (6.5-8.0); Triglycerides 99 mg/dL (<150)
[2025-06-17 09:33] LABS: Microalbum/Creatinine Ratio Ur 19.7 ug/mg cr (<30)
== END 2025-06-17 07:03 | disposition home or self-care (01) ==
LOC: HO.LAB 07:02
PROVIDERS: PCP Internal Medicine; Visit Provider Internal Medicine
DX: Z00.00 Encounter for general adult medical examination without abnormal findings (principal); E78.5 Hyperlipidemia, unspecified; R80.9 Proteinuria, unspecified
CPT/HCPCS: 36415; 80053; 80061; 82043; 82570

== ENCOUNTER 2025-06-20 17:00 | Outpatient (AMB) | payer BC, SELFPAY ==
--- OUTSIDE RECORDS SUMMARY | 2025-06-20 17:03 | XMS_ITS | Patient Health Record ---
Author Organization [facility] Address [address] [place] [address] Care Team Providers Care Dinkey Driver Name Role Phone DR. 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 Travel [place]ide [place]: no Alcohol: yes a [...] W/U Status Risk Notes Problem Common cold (30879807) URI [Upper respiratory infection] (460) Active confirmed Problem Seasonal allergic rhinitis (962023683) Seasonal allergic rhinitis (477.9) Active confirmed Problem Tobacco use (868069015) Tobacco use disorder (305.1) Active confirmed Problem Hemorrhoids (46930563) Hemorrhoids NOS (455.6) Active confirmed Problem EAR ANOM NEC/IMPAIR HEAR (744.09) Active confirmed Encounters Encounter Location Date Provider Diagnosis [facility] [address] [facility] [address] [place] [address] 04/23/2025 Provider Migration GERD [Gastroesophageal reflux disease] [...] CHEMS, LIPIDS, UA 04/15/2005 COMPREHENSIVE METABOLIC PANEL 03/21/2014 COMPREHENSIVE METABOLIC PANEL 05/17/2015 TSH W/REFLEX TO FT4 03/21/2014 TSH W/REFLEX TO FT4 05/17/2015 CBC (INCLUDES DIFF/PLT) 05/17/2015 CBC (INCLUDES DIFF/PLT) 03/21/2014 LIPID PANEL 03/21/2014 LIPID PANEL 05/17/2015 URINALYSIS REFLEX 05/17/2015 URINALYSIS REFLEX 03/21/2014 Insurance Providers Payer Name Payer Address Payer Phone Subscriber Number Group Number Insured Name Patient Relationship to Insured Coverage Start Date Coverage End Date SANIYA MILLER [address] [place] [address] [id number] JONES Self - patient is the insured Medical (General) History Medical History History ICD Code Piteriiosis Anal fissures Chronic Back Pain, Asymmetric Disc GERD ECZEMA HEMMORHOIDS NORMAL CARDIAC ECHO MARCH 2014 Surgical History Surgery Date(Month/Year) Anal surgeries.
[2025-06-20 17:12] VITALS: BP 90/60; PULSE 85; RESP 18; O2SAT 94; BMI 22.8
--- NOTE | 2025-06-20 17:12 | MHC.PC.OV ---
Vital Signs 06/20/25 17:12 Height 5 ft 5 in Weight 137 lb BMI 22.8 BP 90/60 Blood Pressure Location Lt brachial Position Sitting Respiration 18 Pulse 85 Pulse Source Pulse Oximeter Temp Source Temporal Artery Scan Pulse Oximetry (%) 94 Oxygen Delivery Method Room Air Intake Visit Reasons: DM Zipper Ironer Required: No Accompanied by: Self / Same As Patient Allergies No Known Allergies Allergy (Verified 06/20/25 17:20) Medication List - Last Reconciled 06/20/25 by Megan Lea MD betamethasone dipropionate 0.05% 1 appl topical DAILY PRN 15 days blood sugar diagnostic (FreeStyle Lite Strips) Use 1 test strip once a day blood-glucose meter (FreeStyle Lite Meter kit) As directed lancets (FreeStyle Lancets) As directed metformin 500 mg PO BID 90 days pen needle, diabetic (Comfort EZ Pen [place]) Use 1 pen needle once a day rosuvastatin 5 mg PO DAILY 90 days Tobacco use date assessed: 06/20/25 Dental Screening Dental Screen Date: 01/25/25 Did you have a dental visit in the last 12 months?: No Did you have a dental problem in the last 6 months where you did not have access to dental care?: No Was dental information given to patient?: Patient has dentist HPI HPI Comments History of Present Illness Details The patient is a 54-year-old male presenting for follow-up on diabetes mellitus type 2 and hyperlipidemia management. The patient has a history of diabetes mellitus type 2, with the last recorded HbA1c being 7% in January, which has improved to 6.7% recently. He monitors his blood glucose levels regularly and notes higher readings in the morning compared to the evening, possibly due to late-night eating habits. The patient is also managing hyperlipidemia, with current LDL cholesterol levels at 69 mg/dL, which is within the target range. He is on rosuvastatin 5 mg daily, which he reports is effective. The patient has a history of tobacco use, smoking 10-12 cigarettes per day, and expresses a desire to quit. He has been advised on smoking cessation options, including nicotine replacement therapy and Chantix, with a discussion on potential side effects such as mood changes and suicidal ideation. Preventative care includes a colonoscopy performed in 2022, with no current need for repeat screening. [facility] Medical History Tubular adenoma Physical exam Smoker Allergic rhinitis Eczema Diabetes mellitus Surgical History Hx of colonoscopy History of endoscopy History of anal fissures Family History Father Cancer Mother No problems noted. Social History Housing: Condominium Alcohol intake: current Alcohol intake frequency: holidays/special occasions only Alcohol type: wine Patient Tobacco Use Status: Current everyday Tobacco user Tobacco use type: Cigarette Cigarettes Per Day: 13 e-Cigarette/Vaping Use: Never Used Second Hand Smoke Exposure: No service: No Current occupational status: employed Current occupational exposures/hazards: No Cognitive needs: No Hearing needs: No Vision needs: No Questionnaire Thrive Questionnaire Date Thrive assessed: 01/18/25 I am a: Patient What is your living situation today?: I have a steady place to live Within the past 12 months, did the food you bought not last and you didn't have the money to get more?: Never true Within the past 12 months, did you worry whether your food would run out before you got money to buy more?: Never true Do you have trouble paying for medicines?: No Do you have trouble getting transportation to medical appointments?: No Do you have trouble paying your heating and electricity bill?: No Do you have trouble taking care of your child, family member or friend?: No Do you have trouble with day-to-day activities such as bathing, preparing meals, shopping, managing finances, etc.?: No Are you currently unemployed and looking for a job?: No Are you interested in more education?: No Please select the resources that you would like help with: None Currently or been in a relationship where the following occur: No concerns reported THRIVE Score: 0 LISBETH-7 AMB Questionnaire LISBETH-7 Date LISBETH - 7 assessed: 01/25/25 Source: Developed by Drs. Joshua Pruitt, Rachel Frank, Dwayne Ybarra and colleagues, with an educational julien from [employer]. Review of Systems Const All systems reviewed & are unremarkable except as noted in HPI and below Card Denies chest pain at rest, Denies chest pain with activity, Denies edema, Denies irregular heart rhythm, Denies claudication, Denies dyspnea, Denies dyspnea on exertion, Denies orthopnea, Denies paroxysmal nocturnal dyspnea and Denies slow heart rate Resp Denies cough, Denies dyspnea and Denies dyspnea on exertion GI Denies abdominal pain, Denies change in bowel habits, Denies excessive flatus, Denies nausea and Denies vomiting Physical exam (Primary Care) Vital Signs: Last Vital Signs Pulse 85 06/20/25 17:12 Resp 18 06/20/25 17:12 BP 90/60 06/20/25 17:12 Pulse Ox 94 06/20/25 17:12 Oxygen Delivery Method Room Air 06/20/25 17:12 BMI result Body Mass Index 22.8 Tobacco/Smoking Status: Tobacco use Status Tobacco use date assessed 06/20/25 06/20/25 17:17 Patient Tobacco Use Status Current everyday Tobacco 06/20/25 17:17 Tobacco use type Cigarette 06/20/25 17:17 e-Cigarette/Vaping Use Never Used 06/20/25 17:17 Are you ready to quit: No Tobacco cessation counseling provided: Yes Items discussed: Nicotine replacement and QuitWorks Relapse Prevention: discussed the importance of a supportive environment, discussed extending NRT, discussed negative mood or depression after quitting, weight gain after smoking is common and discussed dietary, exercise and/or lifestyle changes Number of minutes spent counselin CPT code: Less than 3 minutes Thrive Assessment: Date of Thrive Assessment Date Thrive assessed 01/18/25 06/20/25 17:17 Currently or been in a relationship where the following occur: No concerns reported Resp Effort & Inspection: normal respiratory effort Auscultation: clear to auscultation bilaterally Cardio Jugular venous distension: no JVD Rate: regular rate Rhythm: regular rhythm Heart sounds: S1 normal heart sound present and S2 normal heart sound present Extrem General: Yes full ROM Results AMB Hemoglobin A1c AMB Hemoglobin A1c 6.7 % Last Edit by Daina Mesa CMA on 06/20/25 17:28 Coding Level of Care Code Est Pt Level 3 (76662) Complex EM visit Add On G2211 Diagnoses Type 2 diabetes mellitus with hyperglycemia, with long-term current use of insulin E11.65; Z79.4 Diabetes mellitus complication status: with hyperglycemia Diabetes mellitus elder assistant insulin use: with elder assistant use Diabetes mellitus type: type 2 Hyperlipidemia LDL goal <70 E78.5 Time Spent (min) 20 Assessment & Plan Assessment & Plan (1) Diabetes mellitus: Code(s): E11.9 - Type 2 diabetes mellitus without complications Category: Medical Qualifiers: Diabetes mellitus complication status: with hyperglycemia Diabetes mellitus elder assistant insulin use: with elder assistant use Diabetes mellitus type: type 2 Qualified Code(s): E11.65 - Type 2 diabetes mellitus with hyperglycemia; Z79.4 - department clerk (current) use of insulin (2) Hyperlipidemia LDL goal <70: Code(s): E78.5 - Hyperlipidemia, unspecified Category: Medical Plan The patient's diabetes management will continue with the current regimen of metformin, as the HbA1c has improved to 6.7%. He is advised to monitor his blood glucose levels and consider adjusting his eating habits to reduce morning hyperglycemia. For hyperlipidemia, the patient will continue on rosuvastatin 5 mg daily, as the LDL cholesterol is within the target range. Regular follow-up and monitoring of lipid levels will be maintained. Regarding tobacco use, the patient is encouraged to quit smoking and has been informed about cessation aids such as nicotine replacement therapy and Chantix. Potential side effects of Chantix, including mood changes and suicidal ideation, were discussed. Preventative care measures include a recent colonoscopy, with no immediate need for repeat screening. Patient was informed and verbally consented to the use of an ambient scribe for clinic note documentation during this visit. Orders: Orders AMB Hemoglobin A1c Today Z13.9 - Encounter for screening, unspecified Lipid Panel 4 Months E78.5 - Hyperlipidemia, unspecified Microalbumin, Random (w Creat) 4 Months R80.9 - Proteinuria, unspecified Vitamin D 25-OH Total 4 Months E55.9 - Vitamin D deficiency, unspecified Comprehensive [place]. Panel Fast 4 Months E11.65 - Type 2 diabetes mellitus with hyperglycemia, Z79.4 - department clerk (current) use of insulin Medications: Refilled metformin 500 mg PO BID 180 tabs 1RF 90 days rosuvastatin 5 mg PO DAILY 90 tabs 1RF 90 days E78.5 - Hyperlipidemia, unspecified
== END 2025-06-20 17:32 | disposition home or self-care (01) ==
LOC: HO.HMCH 17:01
PROVIDERS: PCP Internal Medicine; Visit Provider Internal Medicine
DX: E11.65 Type 2 diabetes mellitus with hyperglycemia (principal); Z79.4 Long term (current) use of insulin; E78.5 Hyperlipidemia, unspecified; Z13.9 Encounter for screening, unspecified

== ENCOUNTER → 2025-06-20 17:00 | Outpatient (BNVA) | payer BC, SELFPAY | PROVIDERS: PCP Internal Medicine; Visit Provider Internal Medicine | DX: E11.65 Type 2 diabetes mellitus with hyperglycemia (principal); E78.5 Hyperlipidemia, unspecified; F17.210 Nicotine dependence, cigarettes, uncomplicated; Z79.4 Long term (current) use of insulin | CPT/HCPCS: 83036 ==